=== PATIENT | female | born 1990 | race Caucasian/White ===

== ENCOUNTER 2021-10-05 18:27 | Emergency (ER) | payer OTHER ==
[2021-10-05 18:54] VITALS: TEMP 98.7; BMI 30.9
[2021-10-05 20:55] LABS: BASO % 0.3 % (0-2.0); EOS % 0.8 % (0-4.5); HEMATOCRIT 39.8 % (32.4-45.2); HEMOGLOBIN 13.5 GM/dL (10.7-15.3); LYMPH % 23.6 % (8-40); MCHC 33.9 g/dl (32.0-36.0); MEAN CELL VOLUME 85.4 fl (80-96); MEAN PLT VOLUME 7.5 fl (7.5-11.1); MONO % 5.7 % (3.8-10.2); NEUT % 69.6 % (42.8-82.8); PLATELET COUNT 299 10^3/uL (134-434); RBC 4.66 M/mm3 (3.60-5.2); RDW 12.9 % (11.6-15.6); WHITE BLOOD COUNT 10.6 K/mm3 (4.0-10.0)
[2021-10-05 21:13] LABS: CALCIUM 9.3 mg/dL (8.5-10.1)
[2021-10-05 21:14] LABS: ALBUMIN 3.7 g/dl (3.4-5.0); BLOOD UREA NITROGEN 14.2 mg/dL (7-18)
[2021-10-05 21:17] LABS: CREATININE 0.7 mg/dL (0.55-1.3)
[2021-10-05 21:19] LABS: BILIRUBIN,TOTAL 0.6 mg/dL (0.2-1); TOT PROT 7.1 g/dl (6.4-8.2)
[2021-10-05 23:04] VITALS: BP 134/86; PULSE 78
== END 2021-10-05 23:01 | disposition home or self-care (01) ==
LOC: JER 18:27
DX: R00.2 Palpitations (principal)
CPT/HCPCS: 36415; 80053; 84703; 85025; 93005; 93010; 99284-25